=== PATIENT | female | born 1940 ===

== ENCOUNTER 2021-02-21 08:45 | Inpatient (IN) | payer OTHER ==
[~2021-02-21] VITALS: Ht 175.3 cm; Wt 89.8 kg
[2021-02-21] MEDS ORDERED: COZAAR25 MG PO (10:53)
[2021-02-21] MEDS ORDERED: PEPCID40 MG PO (10:54)
[2021-02-21] MEDS ORDERED: CRESTOR5 MG PO (10:54)
[2021-03-01] MEDS ORDERED: BACLOFEN20 MG (08:21)
[2021-03-01] MEDS ORDERED: SSD25 GM (08:21)
[2021-03-01] MEDS ORDERED: ROSUVASTATIN CA10 MG (08:21)
[2021-03-01] MEDS ORDERED: MAXIMUM D3325 MCG (08:22)
[2021-03-02] MEDS ORDERED: INTEGRA PLUS C1 EACH PO (06:25)
[2021-03-02] MEDS ORDERED: XARELTO10 MG PO (06:25)
[2021-03-02] MEDS ORDERED: COZAAR25 MG PO (06:25)
[2021-03-02] MEDS ORDERED: BACTRIM DS TAB1 EACH PO (06:25)
[2021-03-02] MEDS ORDERED: TRAMADOL HCL50 MG PO (06:25)
== END 2021-03-02 14:56 | DRG 470 ==
LOC: SURH 02-28 08:45 → O/R 02-28 08:57 → SURH 02-28 08:57
PROVIDERS: ADMIT Orthopaedic Surgery Sports Medicine; ATTEND Orthopaedic Surgery Sports Medicine
PROC: 0SRC0J9 Replacement of Right Knee Joint with Synthetic Substitute, Cemented, Open Approach (ICD-10-PCS; principal; 2021-02-28 10:45)
DX: M17.11 Unilateral primary osteoarthritis, right knee (principal); I10 Essential (primary) hypertension; J44.9 Chronic obstructive pulmonary disease, unspecified; Z96.651 Presence of right artificial knee joint